=== PATIENT | male | born 1940 | race Caucasian/White ===

== ENCOUNTER 2018-05-17 06:20 | Day surgery (SDC) | payer MEDICARE, BC ==
[2018-05-17] MEDS: TROPICAMIDE 1% 3 ML OPH OPER (08:06)
[2018-05-17] MEDS: MOXIFLOXACIN 0.5% 3 ML OPH OPER (08:06)
[2018-05-17] MEDS: PHENYLephrine 2.5% 15 ML OPH OPER (08:06)
[2018-05-17] MEDS: PREDNISOLONE ACET 1% 5 ML OPH OPER (08:07)
[2018-05-17] MEDS: SOD CHLORIDE 0.9% 1,000 ML IV (08:08)
[2018-05-17] MEDS: PROPARACAINE 0.5% 15 ML OPH OPER (08:16)
[2018-05-17 08:30] LABS: INR 1.01; PROTIME 13.4 Sec (11.9-14.9)
[2018-05-17 08:31] LABS: PARTIAL THROMBOPLASTIN TIME 27.6 Sec (25.0-35.0)
[2018-05-17] MEDS ORDERED: LIDOCAINE 1%/EPI 30 ML INJ (09:02)
[2018-05-17] MEDS ORDERED: CARBACHOL 0.01% 1.5 ML OPH INJ (09:02)
[2018-05-17] MEDS ORDERED: TOBRAMYCIN/DEXAMETH 3.5 GM OPH OINT (09:02)
[2018-05-17] MEDS ORDERED: EPINEPHrine 1 MG INJ (09:02)
[2018-05-17] MEDS ORDERED: BUPIVACAINE 0.5% (SDV) 30 ML INJ (09:12)
[2018-05-17] MEDS ORDERED: LIDOCAINE 2% (SDV) 5 ML INJ (09:18)
[2018-05-17] MEDS ORDERED: MIDAZOLAM 1 MG/ML 2 ML INJ (09:19)
[2018-05-17] MEDS ORDERED: PROPOFOL 20 ML (09:19)
[2018-05-17] MEDS ORDERED: ACETAMINOPHEN 1000MG/100ML IV 100 ML IVPB (09:30)
[2018-05-17] MEDS ORDERED: DIPHENHYDRAMINE 50 MG INJ IV (09:30)
[2018-05-17] MEDS ORDERED: LABETALOL HCL 20MG INJ IV (09:30)
[2018-05-17] MEDS ORDERED: ONDANSETRON 4 MG INJ IV (09:30)
[2018-05-17] MEDS ORDERED: hydrALAzine 20 MG INJ IV (09:30)
[2018-05-17] MEDS ORDERED: OXYCODONE/ACETAMINOPHEN (5/325) TAB PO (09:30)
[2018-05-17] MEDS ORDERED: ALBUTEROL 0.083% (NEB) 2.5 MG/3 ML AMP HHN (09:30)
== END 2018-05-17 11:20 | disposition home or self-care (01) ==
LOC: SDS 06:20
DX: H25.11 Age-related nuclear cataract, right eye (principal); I10 Essential (primary) hypertension; I73.9 Peripheral vascular disease, unspecified
CPT/HCPCS: 66982; 85610; 85730